=== PATIENT | female | born 1950 | race Caucasian/White ===

== ENCOUNTER 2021-02-24 14:43 | Emergency (ER) | payer OTHER ==
[2021-02-24 14:56] VITALS: BP 112/51; PULSE 59; TEMP 98.7; BMI 34.3
[2021-02-24 16:25] LABS: BASO % 1.9 % (0-2.0); EOS % 2.4 % (0-4.5); HEMATOCRIT 38.1 % (32.4-45.2); HEMOGLOBIN 13.1 GM/dl (10.7-15.3); LYMPH % 19.5 % (8-40); MCH 32.8 pg (25.7-33.7); MCHC 34.3 g/dl (32.0-36.0); MEAN CELL VOLUME 95.5 fl (80-96); MEAN PLT VOLUME 8.1 fl (7.5-11.1); MONO % 10.3 % (3.8-10.2); NEUT % 65.9 % (42.8-82.8); PLATELET COUNT 220 10^3/uL (134-434); RBC 3.99 M/mm3 (3.60-5.2); RDW 12.1 % (11.6-15.6); WHITE BLOOD COUNT 6.2 K/mm3 (4.0-10.8)
[2021-02-24] MEDS ORDERED: OLANZapine 5 MG TABLET PO ONE (16:31)
[2021-02-24 16:33] LABS: ALBUMIN 3.9 g/dl (3.4-5.0); ALK PHOS 70 U/L (45-117); ANION GAP 10 MMOL/L (8-16); BILIRUBIN,TOTAL 0.6 mg/dl (0.2-1); CALCIUM 8.8 mg/dl (8.5-10); CHLORIDE 97 mmol/L (98-107); CO2 24 mmol/L (21-32); CREATININE 0.8 mg/dl (0.55-1.3); GLUCOSE,RANDOM 237 mg/dl (74-106); MAGNESIUM 1.9 mg/dL (1.8-2.4); SGOT/AST 23 U/L (15-37); SGPT/ALT 18 U/L (13-61); SODIUM 131 mmol/L (136-145); TOT PROT 6.2 g/dl (6.4-8.2)
[2021-02-24 16:37] LABS: ACTIVATED PTT 25.1 SECONDS (25.2-36.5)
[2021-02-24 16:41] LABS: INR 0.92 (0.82-1.09); PROTHROMBIN TIME (PATIENT) 10.4 SEC (10.2-13.0)
[2021-02-24] MEDS ORDERED: OLANZapine 10 MG TABLET PO ONE (16:41)
[2021-02-24 18:30] LABS: EPITHELIAL CELLS FEW /hpf
== END 2021-02-24 18:57 | disposition home or self-care (01) ==
LOC: FER 14:43
DX: R45.1 Restlessness and agitation (principal); F03.91 Unspecified dementia, unspecified severity, with behavioral disturbance
CPT/HCPCS: 36415; 70450-TC; 71045-TC-FY; 80053; 81003; 81015; 82550; 83735; 84484; 85025; 85610; 85730; 87086; 93005; 99285-25; C9803; U0003; U0005

== ENCOUNTER 2021-03-01 07:19 | Emergency (ER) | payer OTHER ==
[2021-03-01] MEDS ORDERED: ACETAMINOPHEN 500 MG TABLET (FP) PO ONE (07:26)
[2021-03-01 07:33] VITALS: BP 132/64; PULSE 55; TEMP 97.9; BMI 34.3
[2021-03-01] MEDS ORDERED: ACETAMINOPHEN 500 MG TABLET (FP) ONE (07:36)
[2021-03-01] MEDS ORDERED: LIDOCAINE 5% TOPICAL PATCH TP ONE (08:43)
[2021-03-01] MEDS ORDERED: LIDOCAINE 5% TOPICAL PATCH ONE (08:45)
[2021-03-01] MEDS ORDERED: LIDOCAINE PATCH REMOVAL MC SCH (22:00)
== END 2021-03-01 11:39 | disposition home or self-care (01) ==
LOC: FER 07:19
DX: S09.90XA Unspecified injury of head, initial encounter (principal); M54.2 Cervicalgia; W01.198A Fall on same level from slipping, tripping and stumbling with subsequent striking against other object, initial encounter
CPT/HCPCS: 70450-TC; 72125-TC; 73070-TC-LT-FY; 73560-TC-LT-FY; 99285-25